=== PATIENT | female | born 1960 | race Caucasian/White ===

== ENCOUNTER 2017-04-09 10:52 | Observation (INO) | payer MEDICAID ==
[~2017-04-09] VITALS: Ht 165.1 cm; Wt 76.0 kg
[2017-04-09] VITALS (7 sets, daily range): BP systolic 102–144; BP diastolic 55–90; PULSE 51–87; RESP 16–18; TEMP 97.7–98.4; O2SAT 97–100
[~2017-04-09 10:52] MED LIST: ALBU1AER INH; ASPI81TA82 PO; CARV12.52 OR; CLON.5 PO; CYCL1PAK; DICL1GEL; FISH1000 PO; GLUCTAB PO; HYDR10SO PO; OMEP20CA5 PO; RANO500 PO; TOPI50TA4 PO; XANA0.5T PO
--- NOTE | 2017-04-09 11:25 | RADRPT ---
EXAM DATE/TIME: 04/09/2017 11:21 [facility] COMPARISON: CHEST SINGLE AP, October 05, 2015, 11:48. INDICATIONS : Chest pains with shortness of breath. MEDICAL HISTORY : Myocardial infarction. SURGICAL HISTORY : CABG. ENCOUNTER: Initial ACUITY: 1 day PAIN SCORE: 6/10 LOCATION: Bilateral chest FINDINGS: Single PA view of the chest demonstrates a normal-sized cardiac silhouette in this patient post media n sternotomy and likely CABG. No effusion, consolidation, or pneumothorax is visualized. Bones and so ft tissues demonstrate no acute finding. CONCLUSION: No acute cardiopulmonary abnormality is identified. Nas Toro MD on April 09, 2017 at 11:23 Board Certified Radiologist. This report was verified electronically.
--- NOTE | 2017-04-09 11:46 | PD ---
HPI Chief Complaint: Cardiac Complaint Time Seen by Provider: 11:41 Travel History International Travel<30 days: No Contact w/Intl Traveler<30days: No Traveled to known affect area: No History of Present Illness HPI 56 year old female presents to the emergency department for evaluation of not feeling well for approximately a week. She states that she has had midsternal chest pressure for approximately 2 years. This is unchanged. She also states that she started with some new left back pain approximately one week ago. She also reports feeling lightheaded for 1 week only with movement, denies syncope. Patient also states she has had vaibhav colored stools that started this morning and she vomited on Sunday, 5 days ago, but no further vomiting since. She states that she just does not feel well so she wanted to make sure that she does not have any cardiac related issue. She does report a history of CABG in 2006 and a stent placement in 2010. She states she recently established with Dr. Norwood. She states her last stress test was done in November 2014. Patient states she did take a nitroglycerin last night to help with the pain. Patient denies any recent surgery or travel. No leg edema. No shortness of breath. Patient has history of hypertension, hyperlipidemia, diabetes, chronic back pain, anxiety. Patient also reports decreased appetite for one month. PFSH Past Medical History Anemia: Yes Blood Disorders: No Bipolar Disorder: Yes Anxiety: Yes Cancer: No Cardiac Catheterization: Yes Cardiovascular Problems: Yes High Cholesterol: Yes Coronary Artery Disease: Yes Diabetes: Yes Patient Takes Glucophage: No Diminished Hearing: No Endocrine: Yes Gastrointestinal Disorders: Yes GERD: Yes Genitourinary: No Hypertension: Yes Musculoskeletal: Yes (CHRONIC BACK PAIN) Psychiatric: Yes Reproductive: No Respiratory: No Immunizations Current: Yes Menopausal: Yes : 4 Para: 2 Miscarriage: 2 : 0 Past Surgical History Coronary Artery Bypass Graft: Yes Coronary Stent: Yes (1) Other Surgery: Yes (OPEN HEART) Social History Alcohol Use: No Tobacco Use: Yes (1PPD) Substance Use: Yes Allergies-Medications (Allergen,Severity, Reaction): Coded Allergies: No Known Allergies (Verified , 11/01/15) Reported Meds & Prescriptions Reported Meds & Active Scripts Active Reported Fish Oil 1000 mg ([place]-3 Fatty Acids) 1 Cap Cap 1,000 Mg PO DAILY Alprazolam 1 Mg Tab 1 Mg PO HS Topamax (Topiramate) 100 Mg Tab 400 Mg PO HS Voltaren Topical (Diclofenac Topical) 1% Gel 1 Applic TOPICAL BID Flexeril (Cyclobenzaprine HCl) 10 Mg Tab 10-20 Mg PO HS Aspirin Adult Low Strength (Aspirin) 81 Mg Tabdr 81 Mg PO DAILY Coreg (Carvedilol) 12.5 Mg Tab 12.5 Mg PO BID Metformin (Metformin HCl) 1,000 Mg Tab 1,000 Mg PO BID With meals Omeprazole 40 Mg Cap 40 Mg PO DAILY [place] (Hydrocodone-Acetaminophen) 10-325 Mg Tab 1 Tab PO TID Proair Hfa 8.5 GM Inh (Albuterol Sulfate) 90 Mcg/Act Aer 2 Puff INH Q4-6H PRN Nitrostat SL (Nitroglycerin) 0.3 Mg Subl 0.3 Mg SL DIRECTED PRN ONE TABLET UNDER THE TONGUE NEEDED FOR CHEST PAIN, MAY REPEAT EVERY FIVE MINUTES FOR A TOTAL OF 3 DOSES OR CALL 911 IF NO RELIEF Zetia (Ezetimibe) 10 Mg Tab 10 Mg PO HS Review of Systems Except as stated in HPI: all other systems reviewed are Neg Physical Exam Narrative GENERAL: Well-nourished, well-developed female patient, ambulatory. Afebrile. Patient appears anxious on exam. SKIN: Focused skin assessment warm/dry. HEAD: Normocephalic. Atraumatic. EYES: No scleral icterus. No injection or drainage. NECK: Supple, trachea midline. No JVD or lymphadenopathy. CARDIOVASCULAR: Regular rate and rhythm without murmurs, gallops, or rubs. Bilateral radial and pedal pulses are 2+. RESPIRATORY: Breath sounds equal bilaterally. No accessory muscle use. Lungs sounds are clear to auscultation throughout. GASTROINTESTINAL: Abdomen soft, non-tender, nondistended. MUSCULOSKELETAL: No cyanosis, or edema. BACK: Nontender without obvious deformity. No CVA tenderness. NEUROLOGICAL: Awake and alert. Cranial nerves II through XII intact. Motor and sensory grossly within normal limits. Five out of 5 muscle strength in all muscle groups. Normal speech. Finger to nose is normal bilaterally. Heel-to- guzman is normal bilaterally. Data Data Last Documented VS Vital Signs Date Time Temp Pulse Resp B/P Pulse Ox O2 Delivery O2 Flow Rate FiO2 04/09/17 13:00 54 16 102/55 100 Room Air 04/09/17 10:56 97.8 Orders Electrocardiogram (04/09/17 11:01) Complete Blood Count With Diff (04/09/17 11:01) Basic Metabolic Panel (Bmp) (04/09/17 11:01) Ckmb (Isoenzyme) Profile (04/09/17 11:01) Troponin I (04/09/17 11:01) Chest, Single Ap (04/09/17 11:01) Prothrombin Time / Inr (Pt) (04/09/17 11:01) Lipase (04/09/17 11:01) Magnesium (Mg) (04/09/17 11:41) Ct Brain W/O Iv Contrast(Rout) (04/09/17 ) Sodium Chlor 0.9% 1000 Ml Inj (Ns 1000 M (04/09/17 13:00) Aspirin Chew (Aspirin Chew) (04/09/17 13:00) Labs Laboratory Tests Test 04/09/17 11:45 White Blood Count 7.9 TH/MM3 Red Blood Count 4.45 MIL/MM3 Hemoglobin 13.0 GM/DL Hematocrit 39.7 % Mean Corpuscular Volume 89.1 FL Mean Corpuscular Hemoglobin 29.3 PG Mean Corpuscular Hemoglobin 32.9 % Concent Red Cell Distribution Width 13.7 % Platelet Count 252 TH/MM3 Mean Platelet Volume 8.3 FL Neutrophils (%) (Auto) 41.4 % Lymphocytes (%) (Auto) 41.8 % Monocytes (%) (Auto) 9.8 % Eosinophils (%) (Auto) 5.3 % Basophils (%) (Auto) 1.7 % Neutrophils # (Auto) 3.3 TH/MM3 Lymphocytes # (Auto) 3.3 TH/MM3 Monocytes # (Auto) 0.8 TH/MM3 Eosinophils # (Auto) 0.4 TH/MM3 Basophils # (Auto) 0.1 TH/MM3 CBC Comment DIFF FINAL Differential Comment Prothrombin Time 10.1 SEC Prothromb Time International 0.9 RATIO Ratio Sodium Level 141 MEQ/L Potassium Level 4.3 MEQ/L Chloride Level 110 MEQ/L Carbon Dioxide Level 23.2 MEQ/L Anion Gap 8 MEQ/L Blood Urea Nitrogen 9 MG/DL Creatinine 0.91 MG/DL Estimat Glomerular Filtration 64 ML/MIN Rate Random Glucose 104 MG/DL Calcium Level 9.0 MG/DL Magnesium Level 2.1 MG/DL Total Creatine Kinase 69 U/L Troponin I LESS THAN 0.02 NG/ML Lipase 148 U/L MDM Medical Decision Making Medical Screen Exam Complete: Yes Emergency Medical Condition: Yes Medical Record Reviewed: Yes Interpretation(s) Last Impressions Chest X-Ray 04/09/17 1101 Signed Impressions: Service Date/Time: Sunday, April 09, 2017 11:21 - CONCLUSION: No acute cardiopulmonary abnormality is identified. Nas Toro MD CT brain - CONCLUSION: 1. No acute hemorrhage or mass effect. 2. Opacification of the left maxillary sinus. Differential Diagnosis ACS versus CAD versus anxiety versus pneumonia versus chest wall pain Narrative Course 56-year-old female presents to the emergency department for evaluation of chest pressure for 2 years as well as new left upper back pain. She states she has not been feeling well for one week. Patient has vague symptoms. She does appear well, but anxious on exam. EKG shows sinus rhythm, heart rate 64, no acute ST changes. CBC, BMP, CK, troponin, magnesium, lipase, PT/INR, chest x- ray were ordered in triage. Patient took 1 baby aspirin today, patient is given second baby aspirin the emergency department. Patient is given 1 L normal saline IV bolus. CBC is unremarkable. BMP shows no acute abnormality. Magnesium is 2.1. CK is 69. Troponin is less than 0.02. Lipase is 140. PTT/INR is 10.0/0.9. Chest x- ray shows no acute cardiopulmonary abnormality. Upon reassessment, patient is concerned about her lightheadedness. She states this only occurs with movement and has none at this time. She also reports an associated headache. She does report history of migraines, but states that her topiramate will usually keep her free from headaches. CT of the brain is ordered and pending. CT of the brain shows no acute abnormality. Patient states she is due for a stress test and states her paper reclaiming machine operator was talking about doing a stress test. Patient will be brought into the chest pain center. Diagnosis Primary Impression: Chest pain Qualified Code: R07.9 - Chest pain, unspecified type Admitting Information Admitting Physician Requests: Keke Paz April 09, 2017 11:46
[2017-04-09 12:01] LABS: AUTOMATED NEUTROPHIL # 3.3 TH/MM3 (1.8-7.7); BASOPHIL # 0.1 TH/MM3 (0-0.2); BASOPHIL % 1.7 % (0.0-2.0); EOSINOPHIL # 0.4 TH/MM3 (0-0.4); EOSINOPHIL % 5.3 % (0.0-4.0); HEMATOCRIT 39.7 % (35.0-46.0); HEMO FLAGS DIFF FINAL; LYMPH % 41.8 % (9.0-44.0); LYMPHOCYTE # 3.3 TH/MM3 (1.0-4.8); MEAN CELL VOLUME 89.1 FL (80.0-100.0); MEAN CORPUSCULAR HEMOGLOBIN 29.3 PG (27.0-34.0); MEAN CORPUSCULAR HGB CONC 32.9 % (32.0-36.0); MONO % 9.8 % (0.0-8.0); NEUT % 41.4 % (16.0-70.0); PLATELET COUNT 252 TH/MM3 (150-450); RED BLOOD COUNT 4.45 MIL/MM3 (4.00-5.30); RED CELL DISTRIBUTION WIDTH 13.7 % (11.6-17.2); WHITE BLOOD COUNT 7.9 TH/MM3 (4.0-11.0)
[2017-04-09 12:09] LABS: INTERNATIONAL NORMALIZED RATIO 0.9 RATIO; PROTHROMBIN TIME - PATIENT 10.1 SEC (9.8-11.6)
[2017-04-09] MEDS ORDERED: TOPA100T11 PO (12:15)
[2017-04-09] MEDS ORDERED: ASPI1TAB91 PO (12:15)
[2017-04-09] MEDS ORDERED: HYDR-3366 PO (12:15)
[2017-04-09] MEDS ORDERED: NITR.3 SL (12:15)
[2017-04-09] MEDS ORDERED: CYCL1TAB29 PO (12:15)
[2017-04-09] MEDS ORDERED: METF1000 PO (12:15)
[2017-04-09] MEDS ORDERED: ALBUAER3 INH (12:15)
[2017-04-09] MEDS ORDERED: CARV12.5 PO (12:15)
[2017-04-09] MEDS ORDERED: ALPR1TAB3 PO (12:15)
[2017-04-09] MEDS ORDERED: DICL1GEL TOPICAL (12:15)
[2017-04-09] MEDS ORDERED: ZETI10TA5 PO (12:15)
[2017-04-09] MEDS ORDERED: OMEP40CA2 PO (12:15)
[2017-04-09] MEDS ORDERED: FISH100020 PO (12:17)
[2017-04-09 12:19] LABS: ANION GAP 8 MEQ/L (5-15); BICARBONATE 23.2 MEQ/L (21.0-32.0); BLOOD UREA NITROGEN 9 MG/DL (7-18); CHLORIDE 110 MEQ/L (98-107); GLOMERULAR FILTRATION RATE 64 ML/MIN (>89); POTASSIUM 4.3 MEQ/L (3.5-5.1); SODIUM (NA) 141 MEQ/L (136-145)
[2017-04-09 12:35] LABS: CREATINE KINASE 69 U/L (26-192)
[2017-04-09] MEDS ORDERED: SODIUM CHLOR 0.9% 1000 ML INJ 1,000 ML IV ONE (13:00)
[2017-04-09] MEDS ORDERED: ASPIRIN 81 MG CHEW TAB CHEW ONE (13:00)
--- NOTE | 2017-04-09 14:48 | RADRPT ---
EXAM DATE/TIME: 04/09/2017 14:03 [facility] COMPARISON: No previous studies available for comparison. INDICATIONS : Near syncope RADIATION DOSE: 36.07 CTDIvol (mGy) MEDICAL HISTORY : Cardiovascular disease. Hypertension. Diabetes SURGICAL HISTORY : CABG ENCOUNTER: Initial ACUITY: 1 day PAIN SCALE: 5/10 LOCATION: cranial TECHNIQUE: Multiple contiguous axial images were obtained of the head. Using automated exposure control and adj ustment of the mA and/or kV according to patient size, radiation dose was kept as low as reasonably a chievable to obtain optimal diagnostic quality images. FINDINGS: CEREBRUM: The ventricles are normal for age. No evidence of midline shift, mass lesion, hemorrhage or acute in farction. No extra-axial fluid collections are seen. POSTERIOR FOSSA: The cerebellum and brainstem are intact. The 4th ventricle is midline. The cerebellopontine angle i s unremarkable. EXTRACRANIAL: The visualized portion of the orbits is intact. SKULL: The calvaria is intact. No evidence of skull fracture. The upper portion of the left maxillary sinus is opacified. CONCLUSION: 1. No acute hemorrhage or mass effect. 2. Opacification of the left maxillary sinus. Philip Simeon MD on April 09, 2017 at 14:37 Board Certified Radiologist. This report was verified electronically.
[2017-04-09] MEDS ORDERED: ACETAMINOPHEN/HYDROcodone 325 MG/10 MG TAB PO PRN (15:30)
[2017-04-09] MEDS ORDERED: SODIUM CHLORIDE 0.9% FLUSH 5 ML FLUSH IVF PRN (15:30)
[2017-04-09] MEDS ORDERED: ONDANSETRON HCL 4 MG/2 ML VIAL IV PRN (15:30)
[2017-04-09] MEDS ORDERED: ACETAMINOPHEN 500 MG CPLT PO PRN (15:30)
--- NOTE | 2017-04-09 15:53 | HHI.HP ---
[facility] Primary Care Physician Juventino Robles Chief Complaint Chest pain History of Present Illness This is a 56-year-old female that presents to ED with history of CAD with CABG and stenting afterwards with a complaint of chest discomfort she's had essentially daily for the last 2 years. She states it is not exertionally related. States she feels fine when she does exercise. She seems to think that is related to stressful situations. When it occurs it will last all day long. She states happens several times a week if not on a daily basis. She does not short of breath but feels that she needs take shallow breaths when occurs. Denies nausea or diaphoresis. It does not feel similar to the symptoms she had when she dated her bypass or stent. She states that over the last week she began to take nitroglycerin which may help a little bit with the discomfort but gives her a bad headache. The bypass was about 10 years ago and a stent was afterwards. She cannot recall exactly when the stent was. She recently established with Dr. Norwood for cardiology and had a 2-D echo in the office and was being scheduled for other tests in the near future. She states she had tired of dealing with the discomfort that she's had for 2 years and came to the ED. Denies recent illnesses. Denies fevers or chills. States she is compliant with her medications but did not take them this morning as she was busy trying to get to the ED. Review of Systems General: Patient denies fevers, chills recent, and recent travel HEENT: Patient denies headache, sore throat, difficulty swallowing. Cardiovascular: Has the chest discomfort as mentioned above. Denies sensation of heart beating rapidly or irregularly. No syncope. Denies diaphoresis. Respiratory: Denies shortness of breath but states it feels as if she has to take shallow breaths. Denies inspirational chest discomfort. Denies coughing wheezing or hemoptysis. GI: Patient denies nausea, vomiting, diarrhea, abdominal pain, bloody stools. Musculoskeletal: She has chronic neck and back pain. Patient denies joint pain or edema. Denies calf pain or edema. Neurovascular: Patient denies numbness, tingling, weakness in extremities. She has been having headaches after taking nitroglycerin. Endocrine: Denies polyuria and polydipsia. Hematologic: Denies easy bruising. Skin: Denies rash or itching. Past Family Social History Allergies: Coded Allergies: No Known Allergies (Verified , 11/01/15) Past Medical History CAD with CABG. She also states she had a stent after CABG and I can recall 1. Hypertension, diabetes, hyperlipidemia, anxiety, chronic back and neck pain, tobacco abuse. Past Surgical History CABG. Heart catheters. Stents. Reported Medications Reported Meds & Active Scripts Active Reported Fish Oil 1000 mg ([place]-3 Fatty Acids) 1 Cap Cap 1,000 Mg PO DAILY Alprazolam 1 Mg Tab 1 Mg PO HS Voltaren Topical (Diclofenac Topical) 1% Gel 1 Applic TOPICAL BID Aspirin Adult Low Strength (Aspirin) 81 Mg Tabdr 81 Mg PO DAILY Coreg (Carvedilol) 12.5 Mg Tab 12.5 Mg PO BID Metformin (Metformin HCl) 1,000 Mg Tab 1,000 Mg PO BID With meals Omeprazole 40 Mg Cap 40 Mg PO DAILY [place] (Hydrocodone-Acetaminophen) 10-325 Mg Tab 1 Tab PO TID Proair Hfa 8.5 GM Inh (Albuterol Sulfate) 90 Mcg/Act Aer 2 Puff INH Q4-6H PRN Nitrostat SL (Nitroglycerin) 0.3 Mg Subl 0.3 Mg SL DIRECTED PRN ONE TABLET UNDER THE TONGUE NEEDED FOR CHEST PAIN, MAY REPEAT EVERY FIVE MINUTES FOR A TOTAL OF 3 DOSES OR CALL 911 IF NO RELIEF Zetia (Ezetimibe) 10 Mg Tab 10 Mg PO HS Active Ordered Medications Current Medications Medications (Trade) Dose Ordered Sig/Zak Route Start Time Stop Time Status Last Admin (Xanax) 1 mg HS PRN PO 04/09/17 15:30 (Coreg) 12.5 mg BID PO 04/09/17 21:00 (Zetia) 10 mg HS PO 04/09/17 21:00 ([place] 10-325 Mg) 1 tab Q8H PRN PO 04/09/17 15:30 (Protonix) 410 mg DAILY PO 04/10/17 09:00 (NS Flush) 2 ml UNSCH PRN IVF 04/09/17 15:30 UNV (NS Flush) 2 ml BID IVF 04/09/17 21:00 UNV (Tylenol) 500 mg Q4H PRN PO 04/09/17 15:30 UNV (Zofran Inj) 4 mg Q6H PRN IV 04/09/17 15:30 UNV (Aspirin) 325 mg DAILY PO 04/10/17 09:00 UNV Family History There is family history of CAD. Social History Patient continues smoke cigarettes and is approximately smoking 1/5 pack a day for the last year but prior that she smoked about a pack of cigarettes daily for 35 years. Denies alcohol or illicit drugs. Physical Exam Vital Signs Vital Signs Date Time Temp Pulse Resp B/P Pulse Ox O2 Delivery O2 Flow Rate FiO2 04/09/17 13:00 54 16 102/55 100 Room Air 04/09/17 11:30 17 Room Air 04/09/17 10:56 97.8 87 17 144/90 98 Physical Exam GENERAL: This is a well-nourished, well-developed patient, in no apparent distress. Patient speaks in clear complete sentences. Patient is pleasant. HEENT: Head is atraumatic and normocephalic. Neck is supple without lymphadenopathy and trachea is midline. No JVD or carotid bruits. CARDIOVASCULAR: Regular rate and rhythm without murmurs, gallops, or rubs. RESPIRATORY: Clear to auscultation. Breath sounds equal bilaterally. No wheezes , rales, or rhonchi. Chest wall is tender and feels somewhat similar to the discomfort that she has. No use of accessory muscles. GASTROINTESTINAL: Abdomen is nontender, nondistended. Abdomen soft. No obvious pulsatile mass or bruit. No CVA tenderness. Strong femoral pulses bilaterally. Normal bowel sounds in all quadrants. MUSCULOSKELETAL: Patient is moving upper and lower extremities freely. No calf tenderness or edema, no Homans sign. Strong pulses in upper and lower extremities. NEUROLOGICAL: Patient is alert and oriented. Cranial nerves 2-12 are grossly intact. No focal deficits and speech is clear. SKIN: No rash and turgor is normal. Laboratory Laboratory Tests Test 04/09/17 11:45 White Blood Count 7.9 Red Blood Count 4.45 Hemoglobin 13.0 Hematocrit 39.7 Mean Corpuscular Volume 89.1 Mean Corpuscular Hemoglobin 29.3 Mean Corpuscular Hemoglobin 32.9 Concent Red Cell Distribution Width 13.7 Platelet Count 252 Mean Platelet Volume 8.3 Neutrophils (%) (Auto) 41.4 Lymphocytes (%) (Auto) 41.8 Monocytes (%) (Auto) 9.8 Eosinophils (%) (Auto) 5.3 Basophils (%) (Auto) 1.7 Neutrophils # (Auto) 3.3 Lymphocytes # (Auto) 3.3 Monocytes # (Auto) 0.8 Eosinophils # (Auto) 0.4 Basophils # (Auto) 0.1 CBC Comment DIFF FINAL Differential Comment Prothrombin Time 10.1 Prothromb Time International 0.9 Ratio Sodium Level 141 Potassium Level 4.3 Chloride Level 110 Carbon Dioxide Level 23.2 Anion Gap 8 Blood Urea Nitrogen 9 Creatinine 0.91 Estimat Glomerular Filtration 64 Rate Random Glucose 104 Calcium Level 9.0 Magnesium Level 2.1 Total Creatine Kinase 69 Troponin I LESS THAN 0.02 Lipase 148 Result Diagram: 04/09/17 1145 04/09/17 1145 Imaging Last 48 hours Impressions Chest X-Ray 04/09/17 1101 Signed Impressions: Service Date/Time: Sunday, April 09, 2017 11:21 - CONCLUSION: No acute cardiopulmonary abnormality is identified. Nas Toro MD Head CT 04/09/17 0000 Signed Impressions: Service Date/Time: Sunday, April 09, 2017 14:03 - CONCLUSION: 1. No acute hemorrhage or mass effect. 2. Opacification of the left maxillary sinus. Philip Simeon MD Course Initial EKG has sinus rhythm with nonspecific anterior T-wave changes. No significant ST segment depressions or elevations. Assessment and Plan Assessment and Plan * Chest pain: Patient will continue to have serial cardiac enzymes and EKGs. She will be seen by Dr. Ferguson of cardiology in the chest pain center. She states she was supposed to have a stress test that was ordered by Dr. Norwood. I discussed the patient with Dr. Norwood and he has requested that we do the Lexiscan while she is here if she rules out. Patient likely will have a Lexiscan and if nonischemic will be discharged home with instructions to follow- up with her ore roaster as well as her primary care physician. * Coronary artery disease: Patient will be reevaluated with stress testing. She is to follow-up with her ore roaster. * Hypertension: Continue current medication. * Hyperlipidemia: Continue current medication. * Tobacco abuse: Patient has been counseled on the importance of smoking cessation. * Chronic back and neck pain: Continue current medication. Patient is stable at this time. She is agreeable to this plan. Dick Eric April 09, 2017 15:53
[2017-04-09 17:06] LABS: CREATINE KINASE 62 U/L (26-192)
[2017-04-09] MEDS: ALPRAZolam 1 MG TAB PO PRN ×2 (17:07→21:22)
[2017-04-09] MEDS ORDERED: ATOR40TA16 PO (17:25)
[2017-04-09 19:21] LABS: CREATINE KINASE 65 U/L (26-192)
[2017-04-09] MEDS ORDERED: EZETIMIBE 10 MG TAB PO SCH (21:00)
[2017-04-09] MEDS: SODIUM CHLORIDE 0.9% FLUSH 5 ML FLUSH IVF SCH (21:00)
[2017-04-09] MEDS: CARVEDILOL 12.5 MG TAB PO SCH (21:22)
[2017-04-10 00:02] VITALS: PULSE 54
[2017-04-10 04:00] VITALS: PULSE 54
[2017-04-10 04:56] VITALS: BP 105/62; PULSE 47; RESP 18; TEMP 98; O2SAT 99
[2017-04-10 07:58] VITALS: BP 119/72; PULSE 77; RESP 18; TEMP 98.4; O2SAT 98
--- NOTE | 2017-04-10 08:22 | EKG ---
Date Performed: 04/09/2017 Time Performed: 15:53:32 PTAGE: 56 years EKG: SINUS BRADYCARDIA BORDERLINE ECG Since PREVIOUS TRACING , no significant change noted PREVIOUS TRACIN04/09/2017 11.21 DOCTOR: Marya Ferguson Interpretating Date/Time 04/10/2017 08:21:19
--- NOTE | 2017-04-10 08:22 | EKG ---
Date Performed: 04/09/2017 Time Performed: 11:21:27 PTAGE: 56 years EKG: Sinus rhythm LOW QRS VOLTAGE IN PRECORDIAL LEADS BORDERLINE ECG PREVIOUS TRACING : 10/05/2015 11.42 Since previous tracing, no significant change noted DOCTOR: Marya Ferguson Interpretating Date/Time 04/10/2017 08:20:45
--- NOTE | 2017-04-10 08:23 | EKG ---
Date Performed: 04/09/2017 Time Performed: 18:37:04 PTAGE: 56 years EKG: SINUS BRADYCARDIA BORDERLINE ECG Since PREVIOUS TRACING , no significant change noted PREVIOUS TRACIN04/09/2017 15.53 DOCTOR: Marya Ferguson Interpretating Date/Time 04/10/2017 08:21:54
[2017-04-10] MEDS ORDERED: REGADENOSON INJ 0.4 MG/5 ML SYR ONE (08:59)
[2017-04-10] MEDS ORDERED: ASPIRIN 325 MG TAB PO SCH (09:00)
[2017-04-10] MEDS ORDERED: PANTOPRAZOLE SOD 40 MG DELAYED RELEASE TAB PO SCH (09:00)
[2017-04-10] MEDS: CARVEDILOL 12.5 MG TAB PO SCH (09:00)
[2017-04-10] MEDS: SODIUM CHLORIDE 0.9% FLUSH 5 ML FLUSH IVF SCH (09:00)
--- NOTE | 2017-04-10 10:29 | RADRPT ---
EXAM DATE/TIME: 04/10/2017 08:31 [facility] COMPARISON: CHEST SINGLE AP, April 09, 2017, 11:21. INDICATIONS : Chest pain intermittently over a year. Coronary artery disease. Angina. DOSE: 25.5 mCi Tc99m Myoview at stress. 8.5 mCi Tc99m Myoview at rest. 0.4 mg Lexiscan STRESS SYMPTOMS: Shortness of breath and nausea. EJECTION FRACTION: 56% MEDICAL HISTORY : Hypertension. Hypercholesterolemia. Current smoker. SURGICAL HISTORY : Coronary artery stent. CABG ENCOUNTER: Initial ACUITY: >1 yr PAIN SCALE: 2/10 LOCATION: Bilateral chest TECHNIQUE: The patient underwent pharmacologic stress with infusion of prescribed dose. Continuous ECG tracing was monitored during stress. Gated SPECT imaging was performed after stress and conventional SPECT i maging was performed at rest. The examination was performed on a SPECT/CT scanner, both attenuation and non-corrected datasets were reviewed. FINDINGS: DISTRIBUTION: The maximum perfused segment at stress is in the anteroseptal wall. PERFUSION STUDY: The pattern of perfusion at stress is within normal limits. GATED STUDY: There is intact wall motion and thickening without hypokinetic or dyskinetic segments. CONCLUSION: 1. Left ventricle perfusion is within normal limits. No fixed or reversible perfusion defect is ident ified. 2. Normal left ventricle wall motion with ejection fraction calculated at 56%. RISK CATEGORY: Low (<1% Annual Mortality Rate) Nas Toro MD on April 10, 2017 at 10:24 Board Certified Radiologist. This report was verified electronically.
--- NOTE | 2017-04-10 10:39 | HHI.DCPOC ---
Discharge Care Plan Diagnosis: (1) Chest pain (2) CAD (coronary artery disease) (3) Hx of CABG (4) Tobacco abuse (5) Hypertension (6) Hyperlipidemia (7) DM (diabetes mellitus) (8) Anxiety Goals to Promote Your Health * To prevent worsening of your condition and complications * To maintain your health at the optimal level Directions to Meet Your Goals Take your medications as prescribed Follow your dietary instruction Follow activity as directed Keep your appointments as scheduled Take your immunizations and boosters as scheduled If your symptoms worsen call your PCP, if no PCP go to Urgent Care Center or Emergency Room Smoking is Dangerous to Your Health. Avoid second hand smoke Call the 24-hour hour crisis hotline for domestic abuse at Dcik Eric April 10, 2017 10:39
[2017-04-10 11:14] VITALS: BP 157/86; PULSE 77; RESP 18; TEMP 98.7; O2SAT 97
--- NOTE | 2017-04-11 07:02 | TR ---
Date Performed: 04/10/2017 Time Performed: 09:10:31 DOCTOR: Marya Ferguson DRUG LIST: CLINICAL HISTORY: REASON FOR TEST: Angina REASON FOR ENDING: OBSERVATION: CONCLUSION: Lexiscan stress test was performed under standard four minute protocol. Radionucl[place] e was injected one minute prior to ending the test. No electrocardiographic abormalities were present to suggest ischemia. Nuclear imaging and interpretation are pending. COMMENTS:
== END 2017-04-10 13:46 | disposition home or self-care (01) ==
LOC: NEPC 10:52 → NEDA 14:53 → NEPHCDU 16:16
PROVIDERS: ADMIT Internal Medicine Cardiovascular Disease; ATTEND Internal Medicine Cardiovascular Disease
DX: R07.89 Other chest pain (principal); I25.10 Atherosclerotic heart disease of native coronary artery without angina pectoris; I10 Essential (primary) hypertension; E11.9 Type 2 diabetes mellitus without complications; E78.5 Hyperlipidemia, unspecified; F41.9 Anxiety disorder, unspecified; G89.29 Other chronic pain; M54.9 Dorsalgia, unspecified; M54.2 Cervicalgia; F17.210 Nicotine dependence, cigarettes, uncomplicated; I25.2 Old myocardial infarction; F31.9 Bipolar disorder, unspecified; K21.9 Gastro-esophageal reflux disease without esophagitis; Z95.1 Presence of aortocoronary bypass graft; Z95.5 Presence of coronary angioplasty implant and graft; Z79.82 Long term (current) use of aspirin; Z79.84 Long term (current) use of oral hypoglycemic drugs
CPT/HCPCS: 70450; 71010; 78452; 80048; 82550; 83690; 83735; 84484; 85025; 85610; 93005; 93017; 96360; 99285; A9502; G0378; J2785; J7030